=== PATIENT | male | born 1985 | race Two or more races ===

== ENCOUNTER 2018-03-10 09:49 | Inpatient (IN) | payer MEDICAID | END 2018-03-15 11:04 | disposition left against medical advice (07) | LOC: TELE-WESTW 20:48 → ER 09:49 → WEST WING 03-12 22:59 → TELE 14:00 → TELE-WESTW 21:00 | DX: K85.90 Acute pancreatitis without necrosis or infection, unspecified (principal); E44.0 Moderate protein-calorie malnutrition; R65.10 Systemic inflammatory response syndrome (SIRS) of non-infectious origin without acute organ dysfunction; E86.0 Dehydration; E66.9 Obesity, unspecified; E87.1 Hypo-osmolality and hyponatremia; F10.10 Alcohol abuse, uncomplicated; K80.20 Calculus of gallbladder without cholecystitis without obstruction; N18.9 Chronic kidney disease, unspecified; E87.6 Hypokalemia ==